=== PATIENT | female | born 1960 | race Caucasian/White ===

== ENCOUNTER → 2022-02-04 11:18 | Outpatient (CLI) | payer BC, SELFPAY ==
--- NOTE | ~2022-02-04 | MM_ITS ---
EXAMINATION: MM screening [facility] BI w chanel HISTORY: Screening TECHNIQUE: Craniocaudal and mediolateral oblique 3-D tomosynthesis images were obtained and synthetic 2-D images were generated. CAD analysis was submitted and interpreted. COMPARISON: Comparison to multiple prior studies sequentially, with oldest reviewed study dated 03/28. BREAST PARENCHYMAL COMPOSITION: There are scattered areas of fibroglandular density. FINDINGS: There is no evidence of suspicious mass, calcification, or architectural distortion to sugg est malignancy in either breast. There has been no suspicious interval change. IMPRESSION: 1. No mammographic evidence of malignancy. 2. Recommend routine screening mammography in one year. BI-RADS Category 1: Negative Reviewed, dictated and finalized at location A.
== END ==
PROVIDERS: PCP Family Medicine; Visit Provider Physician Assistant
DX: Z12.31 Encounter for screening mammogram for malignant neoplasm of breast (principal)
CPT/HCPCS: 77063; 77067

== ENCOUNTER 2023-06-30 08:02 | Outpatient (CLI) | payer BC, SELFPAY ==
[2023-06-30 12:07] LABS: Cholesterol 190 mg/dL (0-200); HDL Direct 59 mg/dL; Triglycerides 59 mg/dL (<150)
[2023-06-30 12:17] LABS: LDL Cholesterol Direct 101 mg/dL
== END 2023-06-30 08:03 | disposition home or self-care (01) ==
LOC: ANHGOSHLAB 08:04
PROVIDERS: PCP Family Medicine; Visit Provider Physician Assistant
DX: E78.2 Mixed hyperlipidemia (principal)
CPT/HCPCS: 36415; 80061

== ENCOUNTER → 2023-07-22 11:29 | Outpatient (CLI) | payer BC, SELFPAY ==
--- NOTE | ~2023-07-22 | MM_ITS ---
EXAMINATION: MM screening [facility] w [facility]el HISTORY: Screening TECHNIQUE: Craniocaudal and mediolateral oblique 3-D tomosynthesis images were obtained and synthetic 2-D images were generated. CAD analysis was submitted and interpreted. COMPARISON: Comparison to multiple prior studies sequentially, with oldest reviewed study dated 03/23. BREAST PARENCHYMAL COMPOSITION: Breast composed of scattered areas of fibroglandular density FINDINGS: There is no evidence of suspicious mass, calcification, or architectural distortion to sugg est malignancy in either breast. There has been no suspicious interval change. IMPRESSION: 1. No mammographic evidence of malignancy. 2. Recommend routine screening mammography in one year. BI-RADS Category 1: Negative Reviewed, dictated and finalized at location A. 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
--- NOTE | ~2023-07-22 | DEXA_ITS ---
Bone Density Report Name: DWAYNE BUSBY Age: 63 Sex: Female Ethnicity: White Date of : 1960 Indication: postmenopausal; screening for osteoporosis; history of glucocorticoids; Referring Provider: Julián Horton Study: Bone densitometry was performed. Exam Date: July 22, 2023 Accession number: [id number] Bone Density: Region BMD T-score Z-score Classification AP Spine (L1-L4) 0.970 -0.7 0.8 Normal Femoral Neck (Left) 0.700 -1.3 0.0 Osteopenia Total Hip (Left) 0.888 -0.4 0.6 Normal Femoral Neck (Right) 0.748 -0.9 0.4 Normal Total Hip (Right) 0.882 -0.5 0.5 Normal Total Hip Mean 0.885 -0.5 0.6 Normal World Health Organization criteria for BMD impression classify patients as: Normal (T-score at or above -1.0), Osteopenia (T-score between -1.0 and -2.5), or Osteoporosis (T-score at or below -2.5). 10-year Fracture Risk(1): Major Osteoporotic Fracture 12% Hip Fracture 1.1% Reported Risk Factors: [place] (), Neck BMD=0.700, BMI=22.0, glucocorticoids (1) FRAX(R) Version 3.08. Fracture probability calculated for an untreated patient. Fracture probability may be lower if the patient has received treatment. Clinical Information Provided by Patient: Has taken Glucocorticoids Patient maximum height was 66.0 Menopause Age: 56 Drinks caffeinated beverages Onset of menses at age 15 Number of children 3 Impression: The patient has low bone mass, based on the Left Femoral Neck T-score. The patient has an estimated ten-year risk of hip fracture of 1.1% and an estimated ten-year risk of major fracture of 12%, based on the WHO FRAX algorithm. The patient has risk factors, including: history of glucocorticoid therapy. Discussion: BONE DENSITY IS LOW AT ONE OR MORE SKELETAL SITES. This patient's lowest T-score is low at one or more skeletal sites. It meets the World Health Organization's (WHO) criteria for ?low bone mass? (T-score between -1.0 and -2.5). The patient's 10-year risk of fracture as calculated by FRAX is less than the threshold where pharmacological therapy is recommended by the National Osteoporosis Foundation (NOF). However, all treatment decisions require clinical judgment and consideration of individual patient factors, including patient preferences, comorbidities, previous drug use, risk factors not captured in the FRAX model (e.g., frailty, falls, vitamin D deficiency, increased bone turnover, interval significant decline in bone density) and possible under or overestimation of fracture risk by FRAX. The patient should follow a healthful lifestyle (good nutrition with adequate calcium and vitamin D, and appropriate weight-bearing exercise). Follow-Up: Consider repeating this study in 2 to 3 years to reassess this patient's status, or sooner if there is some new cli
== END ==
PROVIDERS: PCP Physician Assistant; Visit Provider Physician Assistant
DX: Z12.31 Encounter for screening mammogram for malignant neoplasm of breast (principal); M85.88 Other specified disorders of bone density and structure, other site; Z78.0 Asymptomatic menopausal state
CPT/HCPCS: 77063; 77067; 77080

== ENCOUNTER 2024-11-22 12:01 | Outpatient (CLI) | payer BC, SELFPAY ==
--- NOTE | ~2024-11-22 | XR_ITS ---
Left wrist Technique: PA, oblique, lateral, and ulnar deviation views were obtained. Clinical History: Pain Findings: There is borderline widening of the scapholunate interval. No fracture evident. There is ad vanced degenerative change of the first CMC joint. Soft tissues are unremarkable. Impression: Borderline widening of scapholunate interval. Correlate for scapholunate ligament tear. Consider MR f or further evaluation. 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 Reviewed, dictated and finalized at location M. Impression: Borderline widening of scapholunate interval. Correlate for scapholunate ligame nt tear. Consider MR for further evaluation. 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
== END 2024-11-22 12:02 | disposition home or self-care (01) ==
LOC: GOSHIMG 12:03
PROVIDERS: PCP Family Medicine; Visit Provider Family Medicine
DX: S63.512A Sprain of carpal joint of left wrist, initial encounter (principal); X58.XXXA Exposure to other specified factors, initial encounter; M18.12 Unilateral primary osteoarthritis of first carpometacarpal joint, left hand
CPT/HCPCS: 73110

== ENCOUNTER 2025-01-22 13:45 | Outpatient (RCR) | payer BC, SELFPAY ==
--- NOTE | 2024-12-26 15:45 | OTOPEVAL1 ---
Assessment and note entered by Ruslan Tavarez, DONNA/Sandip, BJT OT Evaluation Information 12/26/24 Assessment Status Evaluation Diagnosis Pain in left wrist, strain of unspecified muscle, fascia, and tenon left Subjective Information Patient reports falling onto her left wrist about a month ago. She reports feeling pain in the base of her left thumb ever since. X-ray was positive for OA and they were unable to tell if there was a chip fracture due to the OA changes at the 1st CMC. She is right handed. Reports difficulties with the left hand for any activities involving a brick yard hand, such as opening a jar. She reports she feels very weak. Assessment OT Clinical Summary Patient referred to OT with left hand pain. Pain appears to be localized to the left thumb, particularly to the CMC joint with the CMC joint flexed toward the palm and a tight 1st web space. She presents with decreased functional thumb ROM and reduced brick yard hand strength. Skilled OT indicated for use of modalities, progressive therapeutic exercise, manual therapy, functional therapeutic activities, joint protection education, HEP instruction, and adaptive ADL techniques to facilitate improved functional left hand use for ADLs. Plan of Care Interventions Therapeutic Exercise,Manual Therapy,Therapeutic Activities,Check Out for Orthotic/Prosthetic, Paraffin OT Services Indicated Yes Treatment Frequency and x/week for 5 visits Duration These treatments will address the objective and functional deficits as defined above. The patient will be advanced safely and appropriately in order for the patient to progress towards his/her prior level of function. Additional exercises will be introduced and as well as a comprehensive home exercise program upon discharge, if needed, ?to ensure carryover of functional gains achieved in the clinic. This treatment plan has been reviewed and agreement upon by the patient.
--- NOTE | 2024-12-26 15:46 | OPREHPOC ---
Outpatient Therapy Plan of Care This is a Multidisciplinary Plan of Care that may contain components documented by all disciplines (PT, OT, and ST.) OT Problem 1 OT Problem #1 Knowledge Deficit OT Goal 1 Goal / Goal Update Patient to be independent with instructed materials. Target Visit 5 OT Problem 2 OT Problem #2 Impaired Range of Motion OT Goal 1 Goal / Goal Update Patient to increase (L) thumb active ROM to improve functional flexibility for strengthening and ADLs: 1. palmar abduction to 40 deg 2. radial abduction to 40 deg Target Visit 5 OT Problem 3 OT Problem #3 Impaired Strength OT Goal 1 Goal / Goal Update 1. 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 to improve functional navy material inspector strength for ADLs. 2. Patient to be able to complete (L) pinch strengthening (palmar, lateral, and tip) with yellow putty without pain and proper mechanics. Target Visit 5
--- NOTE | 2025-01-22 15:24 | OTOPDC ---
Assessment and note entered by Ruslan Tavarez, OTR/L, TANYA OT D/C 01/22/25 Assessment Status Discharge Diagnosis Pain in left wrist, strain of unspecified muscle, fascia, and tenon left Subjective Information Patient reports she is making progress with the left thumb, noting her ability to now joint maker machine and open jars. She is also now able to abduct her thumb further to hold bigger diameter cups. She reports she is getting her strength back and that she is having less pain. She reports feeling back to her baseline with the left thumb, which has been arthritic for years. Patient has also been receiving treatment for right elbow pain, consistent with lateral epicondylitis. She reports it began around [place] time. She has been completing HEP with good results, having less pain with use. Pain after she trimmed hedges with an electric pedro the other day and has been using ice with flair ups of pain. Reported Pain Level Pain Score 3/10 (L) thumb 1/10 (R) elbow Assessment OT Clinical Summary Patient referred to OT with left hand pain and right elbow pain. Pain on the left appears to be localized to the left thumb, particularly to the CMC joint with the CMC joint flexed toward the palm and a tight 1st web space. She has made good progress with improved flexibility and strength of the left hand/thumb. She is reporting less pain and improved functional use as well. The right elbow pain is consistent with lateral epicondylitis. She has responded well to manual therapy and strengthening. She is happy with her progress and reports she is ready for discharge. At this time that patient is independent with instructed materials. D/C OT with HEP. OT Services Indicated No
== END 2025-03-13 15:06 | disposition home or self-care (01) ==
LOC: ANHGOSHOT 13:45
PROVIDERS: PCP Family Medicine; Visit Provider Family Medicine
DX: M25.532 Pain in left wrist (principal); S66.912D Strain of unspecified muscle, fascia and tendon at wrist and hand level, left hand, subsequent encounter
CPT/HCPCS: 97018; 97110; 97140

== ENCOUNTER 2025-03-05 09:38 | Outpatient (CLI) | payer BC, SELFPAY ==
--- OUTSIDE RECORDS SUMMARY | 2025-03-05 10:03 | XMS_ITS | Clinical Summary ---
Author Organization [facility] Screening [place] Address [address] [place] [address] [place] [address] Care Team Providers Care Pattern Developer Name Role Phone Unavailable Primary Care Provider Unavailabl e Active Problems No known active problems Immunizations Immunization Administration Dates Next Due INFLUENZA VACCINE QUADRIVALENT 6 MOS UP PF IM Social History Tobacco Use Types Packs/Day Years Used Date Smoking Tobacco: Never Assessed Comments Unknown Sex and Gender Information Value Date Recorded Sex Assigned at Not on file Legal Sex Female 9:51 AM CDT Gender Identity Not on file Sexual Orientation Not on file Last Filed Vital Signs Vital Sign Reading Time Taken Comments Blood Pressure 100/60 12/05/2020 9:10 AM CDT Pulse - - Temperature - - Respiratory Rate - - Oxygen Saturation - - Inhaled Oxygen Concentration - - Weight 60.8 kg (134 lb) 12/05/2020 9:10 AM CDT Height 165.1 cm (5' 5) 12/05/2020 9:10 AM CDT Body Mass Index 22.3 12/05/2020 9:10 AM CDT Plan of Treatment Health Maintenance Due Date Last Done Comments DTAP/TDAP/TD VACCINES (1 - Tdap) 1981 HPV/Cotest (21-29) 1983 CERVICAL CANCER SCREENING 01/30/1992 HPV/Cotest (30-65) 01/30/1992 PAP SMEAR 01/30/1992 BREAST CANCER SCREENING 2002 COLORECTAL SCREENING 2007 Colorectal Cancer Screening 2007 FIT-DNA Q 3 years 2007 FIT/FOBT Q 1 year 2007 Flex Sig/CT Colonography Q 5 years 2007 ZOSTER VACCINE (1 of 2) 01/30/2012 INFLUENZA VACCINE (#1) 2025 05/07/2020 RSV VACCINE (60+ or ) (1 - 1-dose 75+ series) 2037
--- NOTE | 2025-03-12 16:20 | WPDHOLTEREM ---
Holter/Event Monitor Holter/Event Monitor Date of procedure: 03/05/25 Holter/Event Procedure: 3-7 Day Holter Monitor Indications: Bradycardia Conclusion: 1. 3 day holter monitor on 03/05/25. 2. Underlying rhythm is sinus rhythm. HR range 54-132 bpm; average HR 80 bpm. 3. There are rare premature supraventricular complexes. No supraventricular tachycardia. 4. There are rare premature ventricular complexes. No ventricular tachycardia. 5. No significant pauses greater than 3 seconds. 6. No symptoms available for correlation.
== END 2025-03-05 09:39 | disposition home or self-care (01) ==
PROVIDERS: PCP Family Medicine; Visit Provider Family Medicine
DX: I49.1 Atrial premature depolarization (principal); I49.3 Ventricular premature depolarization; R00.1 Bradycardia, unspecified
CPT/HCPCS: 93242

== ENCOUNTER 2025-06-14 13:07 | Outpatient (CLI) | payer BC, SELFPAY ==
--- NOTE | 2025-06-14 13:10 | ECHO_ITS ---
Patient Info Name: Diandra Ann Age: 65 years : 1960 Gender: Female Ht: 66 in Wt: 130 lbs BSA: 1.66 m2 HR: 72 bpm BP: 123 / 74 mmHg Technical Quality: Good Exam Date: 06/14/2025 1:29 PM Patient Status: O Admit Date: 06/14/2025 Exam Type: CA echo doppler color flow Complete two-dimensional, color flow and Doppler transthoracic echocardiogram is performed. Clinical Data Associate: Mirna Amor Attending Provider: Huong Mckay MD Summary 1. Complete two-dimensional, color flow and Doppler transthoracic echocardiogram is performed. 2. Left ventricular chamber dimension is normal. 3. Left ventricular systolic function is normal, estimated at 60-65. 4. The left ventricular diastolic function is normal. 5. E/e' 6 is not elevated. 6. There is mild tricuspid valve regurgitation. 7. No pulmonary hypertension, estimated pulmonary arterial systolic pressure is 29 mmHg. Left Ventricle E/e' 6 is not elevated. Left ventricular chamber dimension is normal. Left ventricular systolic function is normal, estimated at 60-65. The left ventricular diastolic function is normal. Right Ventricle Right ventricular chamber dimension is normal. Right ventricular systolic function is normal. Left Atria Left atrial chamber dimension is normal. Right Atria Right atrial chamber dimension is normal. Aortic Valve The aortic valve is not well visualized. There is no aortic valve stenosis. There is no aortic valve regurgitation. Pulmonic Valve There is no pulmonic regurgitation. Mitral Valve There is no mitral valve stenosis. There is no mitral valve regurgitation. Tricuspid Valve There is mild tricuspid valve regurgitation. No pulmonary hypertension, estimated pulmonary arterial systolic pressure is 29 mmHg. Pericardium/Pleural There is no pericardial effusion. Inferior Vena Cava Normal inferior vena cava with >50% collapse upon inspiration consistent with normal right atrial pressure, 5 mmHg. Aorta The aortic root size at the sinus of Valsalva is normal. Left Ventricular Outflow Tract Name Value Normal LVOT 2D LVOT Diameter 1.9 cm LVOT Doppler LVOT Peak Velocity 143 cm/s LVOT Peak Gradient 8 mmHg LVOT Mean Gradient 3 mmHg LVOT VTI 26 cm LVOT VTI/AV VTI Ratio 0.9 LVOT Stroke Volume 77 ml LVOT CO 5.6 l/min LVOT CI 3.4 l/min/m2 Pulmonic Valve Name Value Normal RVOT Doppler RVOT Peak Velocity 67 cm/s RVOT Peak Gradient 2 mmHg PV Doppler PV Peak Velocity 80 cm/s PV Peak Gradient 3 mmHg Mitral Valve Name Value Normal MV Diastolic Function MV E Peak Velocity 80 cm/s MV A Peak Velocity 59 cm/s MV E/A 1.4 MV Decel Time (PW) 212 ms Tricuspid Valve Name Value Normal TV Regurgitation Doppler TR Peak Velocity 246 cm/s TR Peak Gradient 21 mmHg Estimated PAP/RSVP RA Pressure 5 mmHg <=5 PA Systolic Pressure 29 mmHg <36 RV Systolic Pressure 29 mmHg <36 Aorta Name Value Normal Ascending Aorta Ao Root Diameter (MM) 2.6 cm Ao Root Diam Index (MM) 1.6 cm/m2 Aortic Valve Name Value Normal AV Doppler AV Peak Velocity 146 cm/s AV Peak Gradient 8 mmHg AV Mean Gradient 4 mmHg AV VTI 28 cm AV Area (Cont Eq VTI) 2.7 cm2 >=3.0 AV Area (Cont Eq Live) 2.9 cm2 AV DI (Live) 0.98 AV Regurgitation 2D LVOT Area 3.0 cm2 Ventricles Name Value Normal LV Dimensions 2D/MM IVS Diastole Thickness (MM) 0.6 cm 0.6-0.9 LVID Diastole (MM) 4.5 cm 3.8-5.2 LVIW Diastolic Thickness (MM) 0.7 cm 0.6-0.9 LVID Systole (MM) 2.5 cm 2.2-3.5 LVOT Diameter 1.9 cm LV Mass (MM Cubed) 82.91 g 67.00-162.00 LV Mass Index (MM Cubed) 50 g/m2 43-95 Relative Wall Thickness (MM) 0.29 LV Fractional Shortening/Ejection Fraction 2D/MM LV Fractional Shortening (MM) 45 % 27-45 LV EF (MM Teichholz) 76 % LV Diastolic Volume (4C MOD) 37 ml LV EF (4C MOD) 52 % LV Diastolic Volume (2C MOD) 38 ml LV EF (2C MOD) 71 % LV Diastolic Volume (BP MOD) 38 ml 46-106 LV Diastolic Volume Index (BP MOD) 23 ml/m2 29-61 LV Systolic Volume (BP MOD) 14 ml 14-42 LV Systolic Volume Index (BP MOD) 9 ml/m2 8-24 LV EF (BP MOD) 63 % 54-74 LV Diastolic Length (4C) 7.6 cm LV Systolic Length (4C) 6.1 cm LV Stroke Volume (4C MOD) 19 ml Atria Name Value Normal LA Dimensions LA Dimension (MM) 2.4 cm 2.7-3.8 LA Volume (4C A-L) 24 ml LA Volume (BP A-L) 24 ml RA Dimensions RA Systolic Major [place] Length (4C) 4.0 cm 2.2-2.8 RA Area (4C) 11.0 cm2 <=18.0 Report Signatures
--- OUTSIDE RECORDS SUMMARY | 2025-06-14 19:54 | XMS_ITS | Clinical Summary ---
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
== END 2025-06-14 13:08 | disposition home or self-care (01) ==
LOC: ANHCARD 13:08
PROVIDERS: PCP Family Medicine; Visit Provider Family Medicine
DX: I47.10 Supraventricular tachycardia, unspecified (principal); R00.1 Bradycardia, unspecified; R55 Syncope and collapse; I36.1 Nonrheumatic tricuspid (valve) insufficiency
CPT/HCPCS: 93306